=== PATIENT | female | born 1950 | race Caucasian/White ===

== ENCOUNTER 2021-10-20 13:34 | Emergency (ER) | payer MEDICARE, OTHER ==
[~2021-10-20] VITALS: Ht 157.5 cm; Wt 74.8 kg
[2021-10-20] MEDS ORDERED: METF-442 PO (14:03)
[2021-10-20] MEDS ORDERED: LOSA1TAB15 PO (14:03)
[2021-10-20] MEDS ORDERED: OMEP20CA15 PO (14:03)
[2021-10-20] MEDS ORDERED: GLIP10TA11 PO (14:03)
[2021-10-20] MEDS ORDERED: ASPI81TA31 PO (14:03)
[2021-10-20] MEDS ORDERED: HYDR-894 PO (14:03)
[2021-10-20] MEDS ORDERED: AMLO10TA59 PO (14:03)
[2021-10-20] MEDS ORDERED: ATOR40TA PO (14:03)
--- NOTE | 2021-10-20 14:10 | NUR ---
DR MORRISON AT BEDSIDE FOR MSE.
[2021-10-20 14:19] LABS: HEMATOCRIT 36.9 % (31.2-41.9); MEAN CORPUSCULAR HEMOGLOBIN 27.5 uug (24.7-32.8); MEAN CORPUSCULAR VOLUME 83.1 fL (75.5-95.3); PLATELET COUNT (AUTO) 282 K/uL (179-408)
[2021-10-20 14:20] LABS: CREATININE 1.1 mg/dL (0.6-1.3); POTASSIUM 3.3 mmol/L (3.5-5.1)
[2021-10-20 14:38] LABS: BILIRUBIN,TOTAL 0.4 mg/dL (0.2-1.0); TOTAL PROTEIN, SERUM 6.8 g/dL (6.4-8.2)
[2021-10-20] MEDS ORDERED: KETOROLAC TROMETHAMINE 15 MG INJ ONE (14:59)
[2021-10-20] MEDS ORDERED: ACETAMINOPHEN 325 MG TABLET ONE (14:59)
[2021-10-20] MEDS ORDERED: POTASSIUM CHLORIDE 20 MEQ TAB.PRT.SR ONE (14:59)
[2021-10-20] MEDS ORDERED: IV NORMAL SALINE 500 ML BAG IV ONE (15:00)
[2021-10-20] MEDS ORDERED: POTASSIUM CHLORIDE 20 MEQ TAB.PRT.SR PO ONE (15:00)
[2021-10-20] MEDS ORDERED: KETOROLAC TROMETHAMINE 15 MG INJ IVP ONE (15:00)
[2021-10-20] MEDS ORDERED: ACETAMINOPHEN 650 MG/20.3 ML LIQUID UDC PO ONE (15:00)
[2021-10-20] MEDS ORDERED: ACETAMINOPHEN 325 MG TABLET PO ONE (15:30)
--- NOTE | 2021-10-20 16:01 | NUR ---
Patient has been cleared for DC by ERMD. IV removed. Catheter intact and site benign. Pressure and 4x4 gauze applied to site. No bleeding noted.Written and verbal after care instructions given. Patient verbalizes understanding of instructions. Stressed follow up with PMD, or return to ER for worsening s/s. Pt able to ambulate out of ED in steady gait.
[2021-10-20 16:02] VITALS: BP 121/68
== END 2021-10-20 16:30 | disposition home or self-care (01) ==
LOC: ER 13:36
DX: R07.9 Chest pain, unspecified (principal); I10 Essential (primary) hypertension; E78.5 Hyperlipidemia, unspecified; Z20.822 Contact with and (suspected) exposure to COVID-19; E11.9 Type 2 diabetes mellitus without complications; I70.0 Atherosclerosis of aorta; Z79.82 Long term (current) use of aspirin; Z79.84 Long term (current) use of oral hypoglycemic drugs; Z79.899 Other long term (current) drug therapy
CPT/HCPCS: 99285; 96374; 71046; 87426; 80053; 83880; 85025; 84484 ×2; 36415; 93005 ×2; J1885; A4663